=== PATIENT | male | born 1945 | race Caucasian/White ===

== ENCOUNTER → 2017-02-15 | Outpatient (CLI) | payer MEDICARE | END | disposition home or self-care (01) | LOC: PCVCIMAG 09:28 | PROVIDERS: ATTEND Internal Medicine Cardiovascular Disease | DX: I71.4 Abdominal aortic aneurysm, without rupture (principal); I25.10 Atherosclerotic heart disease of native coronary artery without angina pectoris; E78.00 Pure hypercholesterolemia, unspecified; I10 Essential (primary) hypertension; I48.2 Chronic atrial fibrillation; I34.1 Nonrheumatic mitral (valve) prolapse | CPT/HCPCS: 80061; 93005; 93978; G0463 ==

== ENCOUNTER → 2017-05-01 | Outpatient (CLI) | payer OTHER ==
[~2017-05-01] MED LIST: REGADENOSON 0.4 MG/5 ML DISP.SYRIN. IV ONE
--- NOTE | 2017-05-01 14:49 | PCVCIMAG ---
APPROVED REPORT Exam: Nuclear Stress Test Indication: CAD Patient Location: Out-Patient Stress Nurse: Alexandra De Santiago RN, Raisa Nino RN OR Tech:Zacarias Zhou NMTCB Ht: 5 ft 11 in Wt: 204 lbs BSA: 2.13 m2 HR: 73 bpm BP: 167/87 mmHg BMI: 28.4 Rhythm: Afib Medical History Medical History: Age, Afib, Hyperlipidemia, HTN, PVD, CVD, Cad Medications: Diltiazem, Lisinopril, Warfarin, ASA Previous Cardiac Procedures: Cabg 2008 Pretest Chest Pain Characteristics: No chest pain Exercise History: Sedentary NM EXAM: Myocardial Perfusion REST/STRESS Imaging Protocol: Rest Tc-99m/Stress Tc-99m 1 day Resting Data Rest SPECT myocardial perfusion imaging was performed in supine position 45 minutes following the intravenous injection of 11 mCi of Tc-99m Sestamibi. Time of rest injection: 0900 Date: 05/01/2017 Pharmacologic Stress Pharmacologic stress test was performed by injecting Regadenoson 0.4 mg IV push followed by the intravenous injection of 33.4 mCi of Tc-99m Sestamibi. Time of stress injection: 1030 Date: 05/01/2017 Study Quality Study: Good Study Data Post stress, the left ventricular ejection was 69%.. SSS: 8 SRS: 5 SDS: 3 TID = 0.92. Perfusion Medium sized area of moderate reversible ischemia involving the mid/basal inferolateral left ventricle consistent with a circumflex distribution. Wall Motion Normal left ventricular size and function with no regional wall motion abnormalities. Nuclear Conclusion Medium sized area of moderate reversible ischemia involving the mid/basal inferolateral left ventricle consistent with a circumflex distribution. Post stress, the left ventricular ejection was 69%.. No prior study available for comparison. Interpreted by: Padilla Coffey MD Electronically Approved: 05/01/2017 12:59:30 Stress Test Details Stress Test: Pharmacologic stress testing performed using 0.4 mg of regadenoson per 5 mL given IV over 10 seconds. Reason for pharmacologic stress test: physical limitation. HR Resting HR: 73 bpmMax Heart Rate (APMHR): 146 bpm Max HR Achieved: 81 bpmTarget HR (85% APMHR): 124 bpm % of APMHR: 55 Recovery HR: 70 bpm BP Resting BP: 167/87 mmHg Max BP: 154/83 mmHg Recovery BP: 156/88 mmHg ECG Resting ECG: Atrial Fibrillation Stress ECG: Atrial Fibrillation Recovery ECG: Sinus Rhythm, NSSTT changes Clinical Reason for Termination: Completed protocol, Dyspnea Stress Symptoms: Dyspnea Symptoms resolved during recovery. Stress ECG Conclusion ECG: Non-ischemic <Conclusion> ECG: Non-ischemic
== END | disposition home or self-care (01) ==
LOC: PCVCIMAG 08:42
PROVIDERS: ATTEND Internal Medicine Cardiovascular Disease
DX: I25.10 Atherosclerotic heart disease of native coronary artery without angina pectoris (principal); I48.91 Unspecified atrial fibrillation; I10 Essential (primary) hypertension; E78.5 Hyperlipidemia, unspecified; K52.9 Noninfective gastroenteritis and colitis, unspecified; K21.9 Gastro-esophageal reflux disease without esophagitis; I34.1 Nonrheumatic mitral (valve) prolapse; I71.4 Abdominal aortic aneurysm, without rupture; Z95.1 Presence of aortocoronary bypass graft
CPT/HCPCS: 78452; 93017; A9500; J2785

== ENCOUNTER → 2017-08-28 | Outpatient (CLI) | payer OTHER ==
--- NOTE | 2017-08-28 17:35 | PCVCIMAG ---
APPROVED REPORT Study performed: 08/28/2017 13:24:01 EXAM: Comprehensive 2D, Doppler, and color-flow Echocardiogram Patient Location: Echo lab Status: routine BSA: 2.17 HR: 83 bpmBP: 146/88 mmHg Rhythm: Atrial Fibrillation Other Information Study Quality: Adequate Indications Mitral Valve Prolapse Murmur Atrial Fibrillation CAD Mitral regurgitation, CABG 2D Dimensions LVEF(%): 58.24 (>50%) IVSd: 13.54 (7-11mm) LVDd: 50.90 mm PWd: 12.51 (7-11mm)Ascending Ao: 40.31 (22-36mm) LVDs: 35.17 (25-40mm) Left Atrium: 46.24 (27-40mm) Aortic Root: 36.90 mm LV Single Plane 4CH: 50.37 % LV Single Plane 2CH: 57.47 %Barreto's LVEF: 53.92 % Biplane EF: 55.6 % Volumes Left Atrial Volume (Systole) Single Plane 4CH: 129.95 mLSingle Plane 2CH: 133.43 mL LA ESV Index: 67.00 mL/m2 Aortic Valve AoV Peak Ambrocio.: 1.99 m/s AO Peak Gr.: 15.92 mmHgLVOT Max P.88 mmHg LVOT Max V: 1.21 m/s AI Vmax: 5.08 m/s AI Mcminn: 3.70 m/s2 AI PHT: 404.09 ms Mitral Valve E/A Ratio: 2.0 MV Decel. Time: 162.79 ms MV E Max Ambrocio.: 0.86 m/s MV A Ambrocio.: 0.44 m/s MV PHT: 47.21 ms IVRT: 85.35 ms Pulmonary Valve PV Peak Ambrocio.: 0.79 m/sPV Peak Gr.: 2.54 mmHg Pulmonary Vein P Vein S: 0.52 m/s P Vein D: 0.95 m/s P Vein S/D Ratio: 0.55 Tricuspid Valve TR Peak Ambrocio.: 3.18 m/s TR Peak Gr.: 40.53 mmHg Left Ventricle The left ventricle is normal size. There is normal LV segmental wall motion. Mild concentric left ventricular hypertrophy. The overall left ventricular systolic function appears in the lower limits of normal. LVEF is 50-55%. This study is not technically sufficient to allow evaluation of the LV diastolic function due to atrial fibrillation. Right Ventricle The right ventricle is normal size. The right ventricular systolic function is normal. Atria Left atrium is severely dilated. Right atrium is moderately dilated. Aortic Valve The Aortic valve is sclerotic but not stenotic. Mild to moderate aortic regurgitation. There is no aortic valvular stenosis. Mitral Valve The mitral valve is normal in structure. Moderate mitral regurgitation. Mitral regurgitation jet is anteriorly directed. No evidence of mitral valve stenosis. Tricuspid Valve The tricuspid valve is normal in structure. Moderate tricuspid regurgitation with PAP of 50 mmHg. Pulmonic Valve The pulmonary valve is normal in structure. Mild pulmonic regurgitation. Great Vessels The aortic root is normal in size. The ascending aorta is mildly dilated to 4.0 cm. IVC is normal in size and collapses with >50% inspiration Pericardium There is no pericardial effusion. <Conclusion> The left ventricle is normal size. Mild concentric left ventricular hypertrophy. LVEF is 50-55%. This study is not technically sufficient to allow evaluation of the LV diastolic function due to atrial fibrillation. The right ventricle is normal size. Left atrium is severely dilated. Right atrium is moderately dilated. Mild to moderate aortic regurgitation. The Aortic valve is sclerotic but not stenotic. Moderate mitral regurgitation. Mitral regurgitation jet is anteriorly directed. Moderate tricuspid regurgitation with PAP of 50 mmHg. There is no pericardial effusion.
== END | disposition home or self-care (01) ==
LOC: PCVCCLINIC 11:57
PROVIDERS: ATTEND Internal Medicine Cardiovascular Disease
DX: I08.3 Combined rheumatic disorders of mitral, aortic and tricuspid valves (principal); I48.91 Unspecified atrial fibrillation; I25.10 Atherosclerotic heart disease of native coronary artery without angina pectoris; I10 Essential (primary) hypertension; I77.9 Disorder of arteries and arterioles, unspecified; I71.4 Abdominal aortic aneurysm, without rupture; E78.00 Pure hypercholesterolemia, unspecified; I45.10 Unspecified right bundle-branch block; R94.31 Abnormal electrocardiogram [ECG] [EKG]; M19.90 Unspecified osteoarthritis, unspecified site; G47.33 Obstructive sleep apnea (adult) (pediatric); Z79.899 Other long term (current) drug therapy; Z79.82 Long term (current) use of aspirin
CPT/HCPCS: 36415; 80061; 93005; 93306; G0463

== ENCOUNTER → 2017-09-03 | Outpatient (CLI) | payer OTHER ==
[~2017-09-03] MED LIST changes: +DIAZEPAM 10 MG TABLET.; +IOHEXOL 300 MG/ML 100ML VIAL.; +IOHEXOL 350 MG/ML 100 ML VIAL.; +IOHEXOL 350 MG/ML 50 ML VIAL.; +IV NORMAL SALINE 1,000 ML BAG; +LIDOCAINE 1% 20 ML VIAL.; +MIDAZOLAM HCL/PF 2 MG/2 ML VIAL.; -REGADENOSON 0.4 MG/5 ML DISP.SYRIN. IV ONE; +fentaNYL PF VIAL 100 MCG/2 ML VIAL; +hydrALAZINE 20 MG/ML VIAL.
== END | disposition home or self-care (01) ==
LOC: PCVCINTER 07:40
DX: I71.4 Abdominal aortic aneurysm, without rupture (principal); I70.1 Atherosclerosis of renal artery; I10 Essential (primary) hypertension
CPT/HCPCS: 36245; 36252; 37242; 75630; 75726; 76937; 93458; 93459; 99152; 99153; C1751; C1760; C1769; C1894; J0360; J1644; J2250; J3010; J7030; Q9967

== ENCOUNTER → 2017-11-08 | Outpatient (CLI) | payer OTHER | END | disposition home or self-care (01) | LOC: PCVCCLINIC 13:52 | DX: I71.4 Abdominal aortic aneurysm, without rupture (principal); I77.9 Disorder of arteries and arterioles, unspecified; I25.10 Atherosclerotic heart disease of native coronary artery without angina pectoris; I10 Essential (primary) hypertension; I48.91 Unspecified atrial fibrillation; E78.00 Pure hypercholesterolemia, unspecified | CPT/HCPCS: G0463 ==